=== PATIENT | male | born 1960 | race Two or more races ===

== ENCOUNTER 2018-10-23 13:43 | Emergency (ER) | payer BC ==
[~2018-10-23] VITALS: Ht 170.2 cm; Wt 79.4 kg
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
--- NOTE | 2018-10-23 14:20 | NUR ---
POISON CONTROL CALLED,SPOKE WITH VIKRAM WITH THESE RECOMMENDATIONS:EXAMINE FOR SIGNS OF ORAL ORTEGA/BLISTERS AND DYSPHAGIA,STRIDOR OR EXCESSIVE DROOLING. IF THESE ARE PRESENT, A GI CONSULT IS ADVISED.DR DELGADO INFORMED.
[2018-10-23 15:35] VITALS: BP 126/71
--- NOTE | 2018-10-23 15:35 | NUR ---
Patient discharged to home in stable condition. Written and verbal after care instructions given. Patient verbalizes understanding of instruction.
== END 2018-10-23 15:35 | disposition home or self-care (01) ==
LOC: ER 13:45
DX: T65.891A Toxic effect of other specified substances, accidental (unintentional), initial encounter (principal); K29.70 Gastritis, unspecified, without bleeding; Y92.89 Other specified places as the place of occurrence of the external cause
CPT/HCPCS: 71045; 99283; A4606